=== PATIENT | male | born 1955 | race Caucasian/White ===

== ENCOUNTER → 2025-05-18 | Outpatient (CLI) | payer MEDICARE, MEDICAID, SELFPAY ==
--- NOTE | 2025-05-18 07:00 | MRI_ITS ---
PROCEDURE: SPINE CERVICAL (ROUTINE) 05/18/2025 REASON FOR EXAM: CERVICAL RADICULOPATHY TECHNIQUE: SPINE CERVICAL (ROUTINE) Multiplanar and multisequence images were obtained without IV contrast administration. FINDINGS: Normal cervical vertebral body height and alignment. Prior fusion between C5-6 and C6-7. Normal craniovertebral junction. The axial images are heavily limited by motion artifact. C2-C3 is unremarkable. At C3-4 there is mild canal narrowing from dorsal disc osteophyte complex without cord compression. C4-5 reveals asymmetric left C5 foraminal narrowing from bony uncinate spurring. At C5-6, no central spinal stenosis or foraminal encroachment. At C6-7, prior fusion. Bone spur on the right more than the left produces asymmetric right foraminal narrowing. At C7-T1, sagittal images are suggestive of ivlls-fomlwdz-ffse-left foraminal narrowing MRI/Spine Cervical (Routine) IMPRESSION: Axial images limited by motion artifact. Zvqfq-hjhdmcl-illc-left foraminal narrowing at C6-7. Asymmetric left C5 forami nal narrowing. Mild canal narrowing at C3-4 Reading [facility]
--- OUTSIDE RECORDS SUMMARY | 2025-05-18 07:09 | XMS RPT_ITS | CCD ---
Author Organization [place] [facility] Care Team Providers Care Senior Benefits Analyst Name Role Phone HAROLDO HEATH MD Admitting Unavailable HAROLDO HEATH MD Primary Care Unavailable HAROLDO HEATH MD Consulting Unavailable HAROLDO HEATH MD Attending Unavailable PROVIDER, UNKNOWN Consulting Unavailable PROVIDER, UNKNOWN Consulting Unavailable PROVIDER, UNKNOWN Consulting Unavailable Pk Kelsey Referring Unavailable Pk Kelsey Attending Unavailable Care Physician, No Primary Primary Care Unava ilable Allergies Allergy Classification Reported Allergen(s) Allergy Type Date of Onset Reaction(s) Facility (1 source) EPINEPHrine Drug Allergy [facility] Repository (1 source) Lidocaine Drug Allergy [facility] (1 source) Penicillins Drug allergy (disorder) [facility] Repository (1 source) diazePAM Drug Allergy 02-01-2016 [facility] Repository (1 source) Lidocaine Drug Allergy 02-01-2016 [facility] Repository (1 source) Penicillins Drug allergy (disorder) 02-01-2016 [facility] Repository (1 source) PHENobarbital Drug Allergy 02-01-2016 [facility] Repository Problems Problem Classification Problem Date Documented Da te Episodic/Chronic Spondylosis; intervertebral disc disorders; other back problems (1 source) Radiculopathy, cervical region; Translations: [Radiculopathy, cervical region] Onset: 05-13-2025 Episodic Results Test Name Value Interpretation Reference Range Facil ity CMP with eGFRon 04-12-2025 AGE 70 years Normal [facility] Comment on above: Performed By: #### 2 39459 #### [facility],[address] [facility] [address] Albumin [Mass/Vol] 3.1 g/dL Low 3.4 - 5.0 [facility] Comment on above: Performed By: #### 2 95976 #### [facility],[address] [place] [address] 55650 Albumin/Globulin [Mass ratio] 0.8 {ratio} Low 0.9 - 1.6 [facility] Comment on above: Performed By: #### 2 85235 #### [facility],[address] [place] [address] 57805 ALK PHOS 78 U/L Normal 46 - 116 [facility] Comment on above: Performed By: #### 2 91866 #### [facility],[address] [place] [address] 06378 ALT [Catalytic activity/Vol] 14 U/L Low 16 - 63 [facility] Comment on above: Performed By: #### 2 62760 #### [facility],[address] [place] [address] 60263 Anion gap [Moles/Vol] 8 mmol/L Low 10 - 20 [facility] Comment on above: Performed By: #### 2 26771 #### [facility],[address] [place] [address] 74752 AST [Catalytic activity/Vol] 13 U/L Low 15 - 37 [facility] Comment on above: Performed By: #### 2 95468 #### [facility],[address] [place] [address] 82097 B/C RATIO 6 ratio Normal 0 - 30 [facility] Comment on above: Performed By: #### 2 42420 #### [facility],[address] [place] [address] 04490 Bilirubin [Mass/Vol] 0.2 mg/dL Normal 0.2 - 1.0 [facility] Comment on above: Performed By: #### 2 33960 #### [facility],[address] [place] [address] 58451 Calcium [Mass/Vol] 8.9 mg/dL Normal 8.5 - 10.1 [facility] Comment on above: Performed By: #### 2 63806 #### [facility],[address] [place], [place] [address] Chloride [Moles/Vol] 104 mmol/L Normal 98 - 107 [facility] Comment on above: Performed By: #### 2 82438 #### [facility],[address] [place], [place] [address] CMP with eGFR Normal [facility] Comment on above: Result Comment: COMP REHENSIVE METABOLIC PANEL Performed By: #### 2 83721 #### [facility],[address] [place] [address] CO2 [Moles/Vol] 27.4 mmol/L Normal 21.0 - 32.0 [facility] Comment on above: Performed By: #### 2 53553 #### [place] [address] Creatinine [Mass/Vol] 1.08 mg/dL Normal 0.70 - 1.30 [facility] Comment on above: Performed By: #### 2 46756 #### [facility],[address] [place] [address] GFR/1.73 sq M.predicted among non-blacks MDRD (S/P/Bld) [Vol rate/Area] mL/min/{1.73_m2} Normal 60 - 999 [facility] Comment on above: Performed By: #### 2 54100 #### [facility],[address] [place] [address] Result Comment: ACCO RDING TO THE NATIONAL KIDNEY DISEASE EDUCATION PROGRAM(NKDE), A NORMAL eGFR IS A VALUE GREATER THAN OR EQUAL TO 60 ML/MIN/1.73 SQ METERS. CHRONIC KIDNEY DISEASE: <60mL/MIN/1.73 SQ METERS KIDNEY FAILURE: <15mL/MIN/1.73 SQ METERS THIS TEST SHOULD ONLY BE USED FOR PATIENTS 18 YEARS OF AGE AND OLDER. Globulin (S) [Mass/Vol] 4.0 g/dL High 1.5 - 3.8 [facility] Comment on above: Performed By: #### 2 49484 #### [address] [address] Glucose [Mass/Vol] 99 mg/dL Normal 74 - 106 [facility] Comment on above: Performed By: #### 2 32437 #### [facility],[address] [place] [address] 12145 Potassium [Moles/Vol] 4.6 mmol/L Normal 3.5 - 5.1 [facility] Comment on above: Performed By: #### 2 12285 #### [address] [address] Protein [Mass/Vol] 7.1 g/dL Normal 6.4 - 8.2 [facility] Comment on above: Performed By: #### 2 02448 #### [facility],[address] [place] [address] 51208 Sodium [Moles/Vol] 135 mmol/L Low 136 - 145 [facility] Comment on above: Performed By: #### 2 70997 #### [facility],[address] [place] [address] 55890 Urea nitrogen [Mass/Vol] 7 mg/dL Normal 7 - 18 [facility] Comment on above: Performed By: #### 2 20711 #### [facility],[address] [place] [address] 62143 URINE CULTURE [CCL]on 2024 Bacteria identified Cx Nom (U) URCUL See Results Below See Below CULTURE, URINE No growth (<1,000 CFU/ml) SOURCE: Urine (Nonspecific) [facility] [address] [place] [address] Jake Koch III, M.D. [id number] SEND TO NO Normal [facility] Comment on above: Performed By: #### 2 56460 #### [facility],[address] [place] [address] 25522 Bacteria Ur Culton 5 Bacteria identified Cx Nom (U) CULTURE, URINE: No growth (<1,000 CFU/ml) Normal [facility] Comment on above: Performed By: #### 6 30-4 #### [facility] CLIA [id number] [address] [place] [address] [facility] CBC + DIFFon 04-05-2025 Baso # 0.02 x10EE3/UL Normal 0.00 - 0.10 [facility] Comment on above: Performed By: #### 2 72721 #### [facility],[address] [place] [address] 79645 Basophils/100 WBC (Bld) 0.2 % Normal 0.0 - 2.0 [facility] Comment on above: Performed By: #### 2 38653 #### [facility],[address] [place] [address] CBC + DIFF Normal [facility] Comment on above: Result Comment: CBC- COMPLETE BLOOD COUNT Performed By: #### 2 62912 #### [facility],[address] [place] [address] 34583 EO # 0.21 x10EE3/UL Normal 0.00 - 0.50 [facility] Comment on above: Performed By: #### 2 23983 #### [facility],[address] [place] [address] 60985 Eosinophils/100 WBC (Bld) 1.9 % Normal 0.0 - 7.0 [facility] Comment on above: Performed By: #### 2 02424 #### [address] [address] Erythrocyte distribution width (RBC) [Ratio] 13.1 % Normal 12.0 - 15.6 [facility] Comment on above: Performed By: #### 2 98470 #### [facility],[address] [place], [place] [address] Hematocrit (Bld) [Volume fraction] 39.7 % Low 40.0 - 52.0 [facility] Comment on above: Performed By: #### 2 90561 #### [facility],[address] [place] [address] 43618 Hemoglobin (Bld) [Mass/Vol] 13.5 g/dL Normal 13.0 - 17.5 [facility] Comment on above: Performed By: #### 2 02798 #### [facility],[address] [place], [place] [address] Lymph # 2.44 x10EE3/UL Normal 0.80 - 2.80 [facility] Comment on above: Performed By: #### 2 16249 #### [facility],[address] [place], [place] [address] Lymphocytes/100 WBC (Bld) 22.2 % Normal 20.0 - 45.0 [facility] Comment on above: Performed By: #### 2 89434 #### [facility],[address] [place] [address] 76237 MANUAL DIFF N/A Normal [facility] Comment on above: Performed By: #### 2 52460 #### [facility],[address] [place] [address] 77662 MCH (RBC) [Entitic mass] 33 pg Normal 27 - 33 [facility] Comment on above: Performed By: #### 2 18968 #### [facility],[address] [place] [address] 65328 MCHC 34 X10 3 Normal 32 - 36 [facility] Comment on above: Performed By: #### 2 80705 #### [facility],[address] [place] [address] 26190 MCV (RBC) [Entitic vol] 98 fL Normal 81 - 98 [facility] Comment on above: Performed By: #### 2 77533 #### [facility],[address] [place] [address] 01255 Hall # 0.86 x10EE3/UL Normal 0.20 - 1.00 [facility] Comment on above: Performed By: #### 2 79432 #### [facility],[address] [place] [address] 16560 MONOS % 7.9 % Normal 0.0 - 10.0 [facility] Comment on above: Performed By: #### 2 22814 #### [facility],[address] [place] [address] 97298 Morphology Kareem (Bld) [Interp] N/A Normal [facility] Comment on above: Performed By: #### 2 11688 #### [facility],[address] [place] [address] 92451 Neut # 7.44 x10EE3/UL High 1.50 - 7.10 [facility] Comment on above: Performed By: #### 2 75406 #### [facility],[address] [place] [address] 25302 Neutrophils/100 WBC (Bld) 67.8 % Normal 46.0 - 76.0 [facility] Comment on above: Performed By: #### 2 01911 #### [facility],[address] [place] [address] 52329 PLATELET 350 x10EE3/UL Normal 150 - 450 [facility] Comment on above: Performed By: #### 2 89604 #### [facility],[address] [place] [address] 05733 Platelet mean volume (Bld) [Entitic vol] 8.8 fL Normal 6.4 - 10.5 [facility] Comment on above: Result Comment: AUTO MATED DIFFERENTIAL Performed By: #### 2 04441 #### [facility],[address] [place] [address] 82851 RBC 4.06 x 10EE6/UL Low 4.50 - 6.00 [facility] Comment on above: Performed By: #### 2 86456 #### [facility],[address] [place] [address] 53945 WBC 11.0 x 10EE3/UL High 4.5 - 10.8 [facility] Comment on above: Performed By: #### 2 68141 #### [facility],[address] [place] [address] 02765 CMP with eGFRon 04-05-2025 AGE 70 years Normal [facility] Comment on above: Performed By: #### 2 36926 #### [facility],[address] [place] [address] 50911 Albumin [Mass/Vol] 3.5 g/dL Normal 3.4 - 5.0 [facility] Comment on above: Performed By: #### 2 98063 #### [facility],[address] [place] [address] 46678 Albumin/Globulin [Mass ratio] 0.9 {ratio} Normal 0.9 - 1.6 [facility] Comment on above: Performed By: #### 2 83306 #### [facility],[address] [place] [address] 98183 ALK PHOS 84 U/L Normal 46 - 116 [facility] Comment on above: Performed By: #### 2 16706 #### [facility],[address] [place] [address] 75799 ALT [Catalytic activity/Vol] 14 U/L Low 16 - 63 [facility] Comment on above: Performed By: #### 2 34933 #### [facility],[address] [place] [address] 20422 Anion gap [Moles/Vol] 16 mmol/L Normal 10 - 20 [facility] Comment on above: Performed By: #### 2 70597 #### [facility],[address] [place] [address] 76392 AST [Catalytic activity/Vol] 16 U/L Normal 15 - 37 [facility] Comment on above: Performed By: #### 2 16348 #### [facility],[address] [place] [address] 33183 B/C RATIO 6 ratio Normal 0 - 30 [facility] Comment on above: Performed By: #### 2 82450 #### [facility],[address] [place] [address] 26243 Bilirubin [Mass/Vol] 0.2 mg/dL Normal 0.2 - 1.0 [facility] Comment on above: Performed By: #### 2 62948 #### [facility],[address] [place] [address] 99489 Calcium [Mass/Vol] 9.1 mg/dL Normal 8.5 - 10.1 [facility] Comment on above: Performed By: #### 2 21211 #### [facility],[address] [place] [address] 96727 Chloride [Moles/Vol] 101 mmol/L Normal 98 - 107 [facility] Comment on above: Performed By: #### 2 65104 #### [facility],[address] [place] [address] 91481 CMP with eGFR Normal [facility] Comment on above: Result Comment: COMP REHENSIVE METABOLIC PANEL Performed By: #### 2 82303 #### [facility],[address] [place] [address] 94321 CO2 [Moles/Vol] 25.0 mmol/L Normal 21.0 - 32.0 [facility] Comment on above: Performed By: #### 2 77397 #### [facility],[address] [place] [address] 21936 Creatinine [Mass/Vol] 1.26 mg/dL Normal 0.70 - 1.30 [facility] Comment on above: Performed By: #### 2 79243 #### [facility],[address] [place] [address] 76956 eGFR 57 ML/MINUTE Low 60 - 999 [facility] Comment on above: Performed By: #### 2 59402 #### [facility],[address] [place] [address] 70980 GFR/1.73 sq M.predicted among non-blacks MDRD (S/P/Bld) [Vol rate/Area] mL/min/{1.73_m2} Normal 60 - 999 [facility] Comment on above: Result Comment: ACCO RDING TO THE NATIONAL KIDNEY DISEASE EDUCATION PROGRAM(NKDE), A NORMAL eGFR IS A VALUE GREATER THAN OR EQUAL TO 60 ML/MIN/1.73 SQ METERS. CHRONIC KIDNEY DISEASE: <60mL/MIN/1.73 SQ METERS KIDNEY FAILURE: <15mL/MIN/1.73 SQ METERS THIS TEST SHOULD ONLY BE USED FOR PATIENTS 18 YEARS OF AGE AND OLDER. Performed By: #### 2 64706 #### [facility],[address] [place] [address] 07398 Globulin (S) [Mass/Vol] 3.8 g/dL Normal 1.5 - 3.8 [facility] Comment on above: Performed By: #### 2 20435 #### [facility],[address] [place] [address] 05649 Glucose [Mass/Vol] 130 mg/dL High 74 - 106 [facility] Comment on above: Performed By: #### 2 14881 #### [facility],[address] [place] [address] 84565 Potassium [Moles/Vol] 4.8 mmol/L Normal 3.5 - 5.1 [facility] Comment on above: Performed By: #### 2 80202 #### [facility],[address] [place] [address] 19843 Protein [Mass/Vol] 7.3 g/dL Normal 6.4 - 8.2 [facility] Comment on above: Performed By: #### 2 39625 #### [facility],[address] [place] [address] 98867 Sodium [Moles/Vol] 137 mmol/L Normal 136 - 145 [facility] Comment on above: Performed By: #### 2 96407 #### [facility],[address] [place] [address] 88479 Urea nitrogen [Mass/Vol] 7 mg/dL Normal 7 - 18 [facility] Comment on above: Performed By: #### 2 31700 #### [facility],[address] [place] [address] 09824 LIPID PROFILEon 04-05-2025 Cholesterol [Mass/Vol] 176 mg/dL Normal 0 - 240 [facility] Comment on above: Performed By: #### 2 26140 #### [facility],[address] [place] [address] 72508 Cholesterol in HDL [Mass/Vol] 35 mg/dL Low 40 - 60 [facility] Comment on above: Performed By: #### 2 77342 #### [facility],[address] [place] [address] 29256 Cholesterol in LDL [Mass/Vol] 94 mg/dL Normal 0 - 129 [facility] Comment on above: Performed By: #### 2 10297 #### [facility],[address] [place] [address] 56128 Cholesterol.total/C holesterol in HDL [Mass ratio] 5.0 {ratio} Normal 0.0 - 5.0 [facility] Comment on above: Performed By: #### 2 06807 #### [facility],[address] [place] [address] 05587 Lipid 1996 panel Normal [facility] Comment on above: Result Comment: LIPI D PROFILE Performed By: #### 2 28139 #### [facility],[address] [place] [address] 83571 Triglyceride [Mass/Vol] 233 mg/dL High 0 - 150 [facility] Comment on above: Performed By: #### 2 75048 #### [facility],[address] [place] [address] 72851 URINALYSISon 04-05-2025 Bilirubin Ql (U) Negative Normal NORMAL: NEGATIVE [facility] Comment on above: Performed By: #### 2 10910 #### [facility],[address] [place] [address] 13053 Clarity (U) clear Normal NORMAL: CLEAR [facility] Comment on above: Performed By: #### 2 79360 #### [facility],[address] [place] [address] 78767 Color (U) p.yel Normal NORMAL: YELLOW [facility] Comment on above: Performed By: #### 2 83111 #### [facility],[address] [place] [address] 56568 Glucose Ql (U) NORM Normal NORMAL: NORMAL [facility] Comment on above: Performed By: #### 2 59381 #### [facility],[address] [place] [address] Hemoglobin Ql (U) Negative Normal NORMAL: NEGATIVE [facility] Comment on above: Performed By: #### 2 01558 #### [facility],[address] [place] [address] 10932 Ketone Negative Normal NORMAL: NEGATIVE [facility] Comment on above: Performed By: #### 2 67285 #### [facility],[address] [place] [address] 21288 Leukocytes Negative Normal NORMAL: NEGATIVE [facility] Comment on above: Performed By: #### 2 01465 #### [facility],[address] [place] [address] 66685 Nitrite Ql (U) Negative Normal NORMAL: NEGATIVE [facility] Comment on above: Performed By: #### 2 80561 #### [facility],[address] [place] [address] 93840 pH (U) 7 [pH] Normal NORMAL: 5.0-8.0 [facility] Comment on above: Performed By: #### 2 68434 #### [facility],[address] [place] [address] Protein Ql (U) Negative Normal NORMAL: NEGATIVE [facility] Comment on above: Performed By: #### 2 64812 #### [facility],[address] [place] [address] Sp Morgan 1.005 Low NORMAL: 1.010-1.030 [facility] Comment on above: Performed By: #### 2 72047 #### [facility],[address] [place] [address] Specimen Type UNSPECIFIED Normal [facility] Comment on above: Performed By: #### 2 36992 #### [facility],[address] [place] [address] Urinalysis dipstick W Reflex Microscopic panel (U) NOT INDICATED Normal [facility] Comment on above: Performed By: #### 2 35099 #### [facility],[address] [place] [address] Urobilinog NORM Normal NORMAL: NORMAL [facility] Comment on above: Performed By: #### 2 05192 #### [facility],[address] [place] [address] CMP with eGFRon 10-03-2024 AGE 69 years Normal [facility] Comment on above: Performed By: #### 2 90427 #### [facility],[address] [place] [address] Albumin [Mass/Vol] 3.6 g/dL Normal 3.4 - 5.0 [facility] Comment on above: Performed By: #### 2 78495 #### [facility],[address] [place] [address] Albumin/Globulin [Mass ratio] 0.8 {ratio} Low 0.9 - 1.6 [facility] Comment on above: Performed By: #### 2 05110 #### [facility],[address] [place] [address] ALK PHOS 84 U/L Normal 46 - 116 [facility] Comment on above: Performed By: #### 2 40365 #### [facility],[address] [place] [address] 03978 ALT [Catalytic activity/Vol] 13 U/L Low 16 - 63 [facility] Comment on above: Performed By: #### 2 84340 #### [facility],[address] [place] [address] 62238 Anion gap [Moles/Vol] 15 mmol/L Normal 10 - 20 [facility] Comment on above: Performed By: #### 2 59311 #### [facility],[address] [place] [address] 49734 AST [Catalytic activity/Vol] 14 U/L Low 15 - 37 [facility] Comment on above: Performed By: #### 2 78436 #### [facility],[address] [place] [address] 00048 B/C RATIO 8 ratio Normal 0 - 30 [facility] Comment on above: Performed By: #### 2 21930 #### [facility],[address] [place] [address] 25784 Bilirubin [Mass/Vol] 0.3 mg/dL Normal 0.2 - 1.0 [facility] Comment on above: Performed By: #### 2 34942 #### [facility],[address] [place] [address] 55679 Calcium [Mass/Vol] 9.6 mg/dL Normal 8.5 - 10.1 [facility] Comment on above: Performed By: #### 2 89415 #### [facility],[address] [place] [address] 70103 Chloride [Moles/Vol] 101 mmol/L Normal 98 - 107 [facility] Comment on above: Performed By: #### 2 99567 #### [facility],[address] [place] [address] 81147 CMP with eGFR Normal [facility] Comment on above: Result Comment: COMP REHENSIVE METABOLIC PANEL Performed By: #### 2 47623 #### [facility],[address] [place] [address] 87376 CO2 [Moles/Vol] 28.8 mmol/L Normal 21.0 - 32.0 [facility] Comment on above: Performed By: #### 2 30051 #### [facility],[address] [place] [address] 73131 Creatinine [Mass/Vol] 1.12 mg/dL Normal 0.70 - 1.30 [facility] Comment on above: Performed By: #### 2 11487 #### [facility],[address] [place] [address] 30755 GFR/1.73 sq M.predicted among non-blacks MDRD (S/P/Bld) [Vol rate/Area] mL/min/{1.73_m2} Normal 60 - 999 [facility] Comment on above: Performed By: #### 2 61946 #### [facility],[address] [place], [place] [address] Result Comment: ACCO RDING TO THE NATIONAL KIDNEY DISEASE EDUCATION PROGRAM(NKDE), A NORMAL eGFR IS A VALUE GREATER THAN OR EQUAL TO 60 ML/MIN/1.73 SQ METERS. CHRONIC KIDNEY DISEASE: <60mL/MIN/1.73 SQ METERS KIDNEY FAILURE: <15mL/MIN/1.73 SQ METERS THIS TEST SHOULD ONLY BE USED FOR PATIENTS 18 YEARS OF AGE AND OLDER. Globulin (S) [Mass/Vol] 4.3 g/dL High 1.5 - 3.8 [facility] Comment on above: Performed By: #### 2 60873 #### [facility],[address] [place] [address] 98650 Glucose [Mass/Vol] 107 mg/dL High 74 - 106 [facility] Comment on above: Performed By: #### 2 03056 #### [facility],[address] [place] [address] 93300 Potassium [Moles/Vol] 4.3 mmol/L Normal 3.5 - 5.1 [facility] Comment on above: Performed By: #### 2 69941 #### [facility],[address] [place] [address] Protein [Mass/Vol] 7.9 g/dL Normal 6.4 - 8.2 [facility] Comment on above: Performed By: #### 2 96387 #### [facility],[address] [place] [address] Sodium [Moles/Vol] 140 mmol/L Normal 136 - 145 [facility] Comment on above: Performed By: #### 2 53075 #### [facility],[address] [place] [address] Urea nitrogen [Mass/Vol] 9 mg/dL Normal 7 - 18 [facility] Comment on above: Performed By: #### 2 28295 #### [facility],[address] [place] [address] URINALYSISon 08-26-2024 Amorphous NONE Normal [facility] Comment on above: Performed By: #### 2 41250 #### [facility],[address] [place] [address] Bacteria 1+ Normal [facility] Comment on above: Performed By: #### 2 98085 #### [facility],[address] [place] [address] Bilirubin Ql (U) Negative Normal NORMAL: NEGATIVE [facility] Comment on above: Performed By: #### 2 18542 #### [facility],[address] [place] [address] Casts NONE Normal [facility] Comment on above: Performed By: #### 2 [id number] #### [facility],[address] [place] [address] Clarity (U) clear Normal NORMAL: CLEAR [facility] Comment on above: Performed By: #### 2 21660 #### [facility],[address] [place] [address] 22418 Color (U) p.yel Normal NORMAL: YELLOW [facility] Comment on above: Performed By: #### 2 [id number] #### [facility],[address] [place] [address] 46494 Crystals LM Nom (Urine sed) NONE Normal [facility] Comment on above: Performed By: #### 2 [id number] #### [facility],[address] [place] [address] 59733 Epi Cells NONE Normal [facility] Comment on above: Performed By: #### 2 04205 #### [facility],[address] [place], [place] [id number] Glucose Ql (U) NORM Normal NORMAL: NORMAL [facility] Comment on above: Performed By: #### 2 66782 #### [facility],[address] [place], [place] [id number] Hemoglobin Ql (U) Negative Normal NORMAL: NEGATIVE [facility] Comment on above: Performed By: #### 2 84171 #### [facility],[address] [place] [address] 78011 Ketone Negative Normal NORMAL: NEGATIVE [facility] Comment on above: Performed By: #### 2 89228 #### [facility],[address] [place] [address] 14895 Leukocytes 500 Abnormal NORMAL: NEGATIVE [facility] Comment on above: Performed By: #### 2 93679 #### [facility],[address] [place] [address] 67369 Mucous NONE Normal [facility] Comment on above: Performed By: #### 2 28736 #### [facility],[address] [place] [address] 90420 Nitrite Ql (U) Negative Normal NORMAL: NEGATIVE [facility] Comment on above: Performed By: #### 2 41387 #### [facility],[address] [place] [address] pH (U) 7 [pH] Normal NORMAL: 5.0-8.0 [facility] Comment on above: Performed By: #### 2 93945 #### [facility],[address] [place] [address] Protein Ql (U) Negative Normal NORMAL: NEGATIVE [facility] Comment on above: Performed By: #### 2 66277 #### [facility],[address] [place] [address] Rbc NONE Normal 0-3/hpf [facility] Comment on above: Performed By: #### 2 76825 #### [facility],[address] [place] [address] Sp Morgan 1.005 Low NORMAL: 1.010-1.030 [facility] Comment on above: Performed By: #### 2 30162 #### [facility],[address] [place] [address] Specimen Type UNSPECIFIED Normal [facility] Comment on above: Performed By: #### 2 [id number] #### [facility],[address] [place] [address] Urinalysis dipstick W Reflex Microscopic panel (U) SEE BELOW Normal [facility] Comment on above: Result Comment: MICR OSCOPIC Performed By: #### 2 45253 #### [facility],[address] [place] [address] Urobilinog NORM Normal NORMAL: NORMAL [facility] Comment on above: Performed By: #### 2 07026 #### [facility],[address] [place] [address] Wbc 1-5 Normal 0-5/hpf [facility] Comment on above: Performed By: #### 2 51468 #### [facility],[address] [place] [address] Yeast NONE Normal [facility] Comment on above: Performed By: #### 2 20239 #### [facility],[address] [place] [address]654 Bacteria Ur Culton Bacteria identified Cx Nom (U) ORGANISM ID: 1 >=100,000 CFU/ml Normal urogenital carole Normal [facility] Comment on above: Performed By: #### 6 30-4 #### [facility] CLIA [id number] [address] [place], [place] [id number] [address] OF [place] URINE CULTURE [CCL]on 2023 Bacteria identified Cx Nom (U) URCUL See Results Below See Below CULTURE, URINE NORMAL UROGENITAL CAROLE >=100,000 CFU/ml Normal urogenital carole SOURCE: Urine (Nonspecific) [facility] [address] [place] [address] Jake Koch III, M.D. [id number] Normal [facility] Comment on above: Performed By: #### 2 51357 #### [facility],[address] [place], [place] [id number] Legionella Urine Agon 2018 Legionella Urine Ag disease. Normal Negative [facility] Encounters Encounter Date Encounter Type Care Provider Facility Start: 05-18-2025 ambulatory Pk Verdugo ty:[facility] Start: 11-02-2024 ambulatory HAROLDO HEATH [facility] Procedures Date Procedure Procedure Detail Performing Clinician Start: 04-05-2025 PSA screening HAROLDO SALVADOR Comment on above: Performed By: #### 2 [id number] #### [facility],[address] [place] [address] Start: 04-05-2025 Urinalysis HAROLDO BOLAND AN Comment on above: Result Comment: URIN ALYSIS Performed By: #### 2 67960 #### [facility],[address] [place], [place] [id number] Start: 08-26-2024 Urinalysis HAROLDO OMGeovanny AN Comment on above: Result Comment: URIN ALYSIS Performed By: #### 2 58438 #### [facility],[address] [facility] [address] Payers Date Payer Category Payer Medicare [id number] 2025 Self-pay 2025 Medicaid [id number] 1955 Unknown [id number] Unknown [id number] Summary Purpose Family History No Family History Records FoundNo Family History Records FoundNo Family History Records FoundNo Family History Records Found Advance Directives No Advanced Directives Records FoundNo Advanced Directives Records FoundNo Advanced Directives Records FoundNo Advanced Directives Records Found Additional Source Comments (unrecognized sect ion and content) No Status Records FoundNo Status Records FoundNo Status Records FoundNo Status Records Found INFORMATION SOURCE (unrecogn ized section and content) DATE CREATED AUTHOR 06/23/2019 [facility] DATE CREATED AUTHOR AUTHOR'S ORGANIZ ATION 04/08/2025 [facility] DATE CREATED AUTHOR AUTHOR'S ORGANIZ ATION 04/14/2025 [facility] DATE CREATED AUTHOR AUTHOR'S ORGANIZ ATION 05/13/2025 [facility] FOR RECORDS PERTAINING TO PATIENTS WHO ARE OR HAVE BEEN ENROLLED IN A CHEMICAL DEPENDENCY/SUBSTANCEABUSE PROGRAM, SOME INFORMATION MAY BE OMITTED. This clinical summary was aggregated from multiple sources. Caution should be exercised in using it in the provision of clinical care. This summary normalizes information from multiple sources, and as a consequence, information in this document may materially change the coding, format and clinical context of patient data. In addition, data may be omitted in some cases. CLINICAL DECISIONS SHOULD BE BASED ON THE PRIMARY CLINICAL RECORDS. [employer] provides no warranty or guarantee of the accuracy or completeness of information in this document.
== END | disposition home or self-care (01) ==
LOC: MRI 06:50
PROVIDERS: Referring Provider Anesthesiology; Visit Provider Anesthesiology
DX: M54.12 Radiculopathy, cervical region (principal)
CPT/HCPCS: 72141